=== PATIENT | female | born 1940 | race Two or more races ===

== ENCOUNTER 2017-07-21 08:50 | Inpatient (IN) | payer OTHER ==
[~2017-07-21] VITALS: Ht 162.6 cm; Wt 56.7 kg
[~2017-07-21 08:50] MED LIST: ACID CONTROL150 MG PO; AMOX1TAB12 PO; ANTIVERT25 M1 PO; CIPRO500 MG PO; INTESTINEX1 CA1 PO; LEVAQUIN750 MG PO; LIPITOR20 MG; METRONIDAZOLE500 MG PO; OFLOXACIN TP; PLAVIX75 MG; TESSALON PERLE100 MG PO; TUSSI PRES-B L120 M1 PO
== END 2017-07-31 15:47 | disposition home or self-care (01) | DRG 190 ==
LOC: ER 08:50 → MEDI 17:01
PROC: 4A033R1 Measurement of Arterial Saturation, Peripheral, Percutaneous Approach (ICD-10-PCS; principal; 2017-07-21)
PROC: 3E0F7GC Introduction of Other Therapeutic Substance into Respiratory Tract, Via Natural or Artificial Opening (ICD-10-PCS; 2017-07-21)
PROC: BW24Y0Z Computerized Tomography (CT Scan) of Chest and Abdomen using Other Contrast, Unenhanced and Enhanced (ICD-10-PCS; 2017-07-24)
PROC: B246ZZZ Ultrasonography of Right and Left Heart (ICD-10-PCS; 2017-07-25)
PROC: 4A12X4Z Monitoring of Cardiac Electrical Activity, External Approach (ICD-10-PCS; 2017-07-26)
PROC: 02HV33Z Insertion of Infusion Device into Superior Vena Cava, Percutaneous Approach (ICD-10-PCS; 2017-07-27)
PROC: 4A12XM4 Monitoring of Cardiac Stress, External Approach (ICD-10-PCS; 2017-07-28)
PROC: 3E033HZ Introduction of Radioactive Substance into Peripheral Vein, Percutaneous Approach (ICD-10-PCS; 2017-07-28)
PROC: BB24Y0Z Computerized Tomography (CT Scan) of Bilateral Lungs using Other Contrast, Unenhanced and Enhanced (ICD-10-PCS; 2017-07-29)
DX: J44.1 Chronic obstructive pulmonary disease with (acute) exacerbation (principal); J18.9 Pneumonia, unspecified organism; I50.33 Acute on chronic diastolic (congestive) heart failure; B37.0 Candidal stomatitis; I20.0 Unstable angina; J45.32 Mild persistent asthma with status asthmaticus; J44.0 Chronic obstructive pulmonary disease with (acute) lower respiratory infection; R09.02 Hypoxemia; J20.9 Acute bronchitis, unspecified; I11.0 Hypertensive heart disease with heart failure; R42 Dizziness and giddiness

== ENCOUNTER → 2017-11-12 | Outpatient (CLI) | payer OTHER | END | disposition home or self-care (01) | LOC: TOM 07:32 | DX: R10.9 Unspecified abdominal pain (principal) ==

== ENCOUNTER 2018-11-11 07:32 | Emergency (ER) | payer OTHER ==
[~2018-11-11] VITALS: Ht 162.6 cm; Wt 60.8 kg
[2018-11-11] MEDS ORDERED: ASPIR 8181 MG PO (07:43)
== END 2018-11-11 11:15 | disposition home or self-care (01) ==
LOC: ER 07:32
DX: N39.0 Urinary tract infection, site not specified (principal)

== ENCOUNTER 2018-11-15 00:12 | Inpatient (IN) | payer OTHER ==
[~2018-11-15] VITALS: Ht 162.6 cm; Wt 60.8 kg
[~2018-11-15 00:12] MED LIST changes: +ASPIR 8181 MG PO
--- NOTE | 2018-11-15 00:23 | NUR ---
SE RECIBE PTE ALERTA Y ORIENTADA POR KRISTIE EN AMBULANCIA. FAMILIAR REFIERE QUE LA PTE DAVID PRESENTADO 10 EPISODIOS DE VOMITOS Y 15 DE DIARREAS DESDE HOY EN LA TARDE. PTE ES PRESENTADA A DR. PICKENS POR PERSONAL PARAMEDICO.
--- NOTE | 2018-11-15 01:39 | NUR ---
SE RECIBE A ЮЛИЯ DE EMERGENCIAS AREA DE OBSERVACION,PTE FEMENINA DE 78 YRS,PTE ALERTA X 3, EN BUSHRA CON BARANDAS ELEVADAS POR BERNAL SEGURIDAD,DR PICKENS EVALUA Y ORDENA IVF'S CON MEDICAMENTOS Y LABORATORIOS.
--- NOTE | 2018-11-15 06:59 | NUR ---
PACIENTE ALERTA Y ORIENTADA X3, CON BUEN PATRON RESPIRATORIO Y SIGNOS VITALES ESTABLES, NO REFIERE DOLOR AL MOMENTO, CANALIZADA EN BRAZO DERECHO BAJANDO UN 0.9NSS AT 125ML/HR. PENDIENTE A CONSULTA CON INTERNISTA. SE CJ TRANQUILA EN CAMA, CON BARANDAS ELEVADAS, FRENOS COLOCADOS Y SIGNSO VITALES ESTABLES.
[2018-11-19] MEDS ORDERED: Intestinex CAP PO (07:18)
[2018-11-19] MEDS ORDERED: CIPRO500 MG PO (07:19)
== END 2018-11-19 14:39 | disposition home or self-care (01) | DRG 683 ==
LOC: ER 00:12 → MEDJ 06:58
PROVIDERS: ADMIT Student in an Organized Health Care Education/Training Program
PROC: 8E0ZXY6 Isolation (ICD-10-PCS; 2018-11-15)
PROC: BW21Y0Z Computerized Tomography (CT Scan) of Abdomen and Pelvis using Other Contrast, Unenhanced and Enhanced (ICD-10-PCS; principal; 2018-11-17)
DX: N17.8 Other acute kidney failure (principal); N39.0 Urinary tract infection, site not specified; K57.32 Diverticulitis of large intestine without perforation or abscess without bleeding; E86.0 Dehydration; E87.8 Other disorders of electrolyte and fluid balance, not elsewhere classified; N20.0 Calculus of kidney; I10 Essential (primary) hypertension

== ENCOUNTER → 2018-11-24 | Outpatient (CLI) | payer OTHER ==
[~2018-11-24] MED LIST changes: +Intestinex CAP PO
== END | disposition home or self-care (01) ==
LOC: TOM 09:00
DX: R51 Headache (principal)

== ENCOUNTER 2018-12-15 07:47 | Outpatient (CLI) | payer OTHER | END 2018-12-15 08:02 | disposition home or self-care (01) | LOC: SONOGRAMA 07:47 | DX: C50.819 Malignant neoplasm of overlapping sites of unspecified female breast (principal) ==

== ENCOUNTER → 2018-12-16 | Outpatient (CLI) | payer OTHER | END | disposition home or self-care (01) | LOC: NUCLEAR 09:00 | DX: I50.32 Chronic diastolic (congestive) heart failure (principal); I13.0 Hypertensive heart and chronic kidney disease with heart failure and stage 1 through stage 4 chronic kidney disease, or unspecified chronic kidney disease ==

== ENCOUNTER 2018-12-21 09:59 | Outpatient (CLI) | payer OTHER | END 2018-12-21 10:02 | disposition home or self-care (01) | LOC: RAD 09:59 | DX: J44.1 Chronic obstructive pulmonary disease with (acute) exacerbation (principal) ==

== ENCOUNTER 2019-06-10 11:00 | Emergency (ER) | payer OTHER ==
[~2019-06-10] VITALS: Ht 162.6 cm; Wt 59.0 kg
== END 2019-06-10 13:28 | disposition home or self-care (01) ==
LOC: ER 11:00
DX: M54.5 Low back pain (principal)

== ENCOUNTER 2019-07-26 07:16 | Outpatient (CLI) | payer OTHER | END 2019-07-26 07:29 | disposition home or self-care (01) | LOC: NUCLEAR 07:16 | DX: S32.10XA Unspecified fracture of sacrum, initial encounter for closed fracture (principal) | CPT/HCPCS: 78306; A9503 ==

== ENCOUNTER 2019-09-01 09:01 | Outpatient (CLI) | payer OTHER | END 2019-09-01 09:23 | disposition home or self-care (01) | LOC: NUCLEAR 09:01 | DX: I67.89 Other cerebrovascular disease (principal) ==

== ENCOUNTER 2019-09-12 13:48 | Outpatient (CLI) | payer OTHER | END 2019-09-12 13:57 | disposition home or self-care (01) | LOC: NUCLEAR 13:48 | DX: M81.0 Age-related osteoporosis without current pathological fracture (principal) ==

== ENCOUNTER 2019-09-14 09:57 | Emergency (ER) | payer OTHER ==
[~2019-09-14] VITALS: Ht 157.5 cm; Wt 59.0 kg
[2019-09-14] MEDS ORDERED: MECLIZINE HCL25 MG PO (14:42)
== END 2019-09-14 14:51 | disposition home or self-care (01) ==
LOC: ER 09:57
DX: R42 Dizziness and giddiness (principal)

== ENCOUNTER 2020-01-12 11:42 | Emergency (ER) | payer OTHER ==
[~2020-01-12] VITALS: Ht 160 cm; Wt 58.1 kg
[~2020-01-12 11:42] MED LIST changes: +MECLIZINE HCL25 MG PO
[2020-01-12] MEDS ORDERED: CLINDAMYCIN HC150 MG PO (15:55)
[2020-01-12] MEDS ORDERED: CELEBREX100 MG PO (15:55)
== END 2020-01-12 16:00 | disposition home or self-care (01) ==
LOC: ER 11:42
DX: L03.211 Cellulitis of face (principal); K13.79 Other lesions of oral mucosa

== ENCOUNTER → 2020-08-07 | Outpatient (CLI) | payer OTHER ==
[~2020-08-07] MED LIST changes: +CELEBREX100 MG PO; +CLINDAMYCIN HC150 MG PO
== END | disposition home or self-care (01) ==
LOC: RAD 11:55
PROVIDERS: ATTEND Pediatrics
DX: I10 Essential (primary) hypertension (principal); I15.8 Other secondary hypertension

== ENCOUNTER 2021-03-13 08:00 | Outpatient (CLI) | payer OTHER | END 2021-03-13 08:30 | disposition home or self-care (01) | LOC: PPH VACUNA 08:00 | DX: Z23 Encounter for immunization (principal) ==

== ENCOUNTER 2021-04-09 10:48 | Emergency (ER) | payer OTHER ==
[~2021-04-09] VITALS: Ht 160 cm; Wt 59.0 kg
[2021-04-09] MEDS ORDERED: ALPHAGAN P5 M2 OP (11:15)
== END 2021-04-09 16:47 | disposition home or self-care (01) ==
LOC: ER 10:48
DX: K29.70 Gastritis, unspecified, without bleeding (principal); R07.89 Other chest pain

== ENCOUNTER 2021-08-01 15:30 | Outpatient (CLI) | payer OTHER ==
[~2021-08-01 15:30] MED LIST changes: +ALPHAGAN P5 M2 OP
== END 2021-08-01 15:44 | disposition home or self-care (01) ==
LOC: LAB 15:30
PROVIDERS: ATTEND Internal Medicine
DX: E55.9 Vitamin D deficiency, unspecified (principal)

== ENCOUNTER 2021-08-02 08:13 | Outpatient (CLI) | payer OTHER | END 2021-08-02 08:20 | disposition home or self-care (01) | LOC: LAB 08:13 | PROVIDERS: ATTEND Internal Medicine | DX: R73.03 Prediabetes (principal); J44.9 Chronic obstructive pulmonary disease, unspecified; E78.2 Mixed hyperlipidemia; E55.9 Vitamin D deficiency, unspecified; N76.0 Acute vaginitis ==

== ENCOUNTER 2021-08-05 07:47 | Outpatient (CLI) | payer OTHER | END 2021-08-05 08:05 | disposition home or self-care (01) | LOC: TOM 07:47 | PROVIDERS: ATTEND Internal Medicine | DX: R10.84 Generalized abdominal pain (principal) | CPT/HCPCS: 74177; Q9965 ==

== ENCOUNTER 2021-10-18 08:00 | Outpatient (CLI) | payer OTHER | END 2021-10-18 08:30 | disposition home or self-care (01) | LOC: PPH VACUNA 08:00 | PROVIDERS: ATTEND Emergency Medicine Pediatric Emergency Medicine | DX: Z23 Encounter for immunization (principal) ==

== ENCOUNTER 2021-11-21 09:05 | Outpatient (CLI) | payer OTHER | END 2021-11-21 09:17 | disposition home or self-care (01) | LOC: LAB 09:05 | DX: N39.0 Urinary tract infection, site not specified (principal); N20.0 Calculus of kidney; D68.9 Coagulation defect, unspecified ==

== ENCOUNTER 2021-11-21 10:19 | Outpatient (CLI) | payer OTHER | END 2021-11-21 10:24 | disposition home or self-care (01) | LOC: RAD 10:19 | DX: J18.9 Pneumonia, unspecified organism (principal) ==

== ENCOUNTER 2022-02-05 08:53 | Outpatient (CLI) | payer OTHER | END 2022-02-05 09:04 | disposition home or self-care (01) | LOC: LAB 08:53 | PROVIDERS: ATTEND Internal Medicine | DX: E78.2 Mixed hyperlipidemia (principal); E55.9 Vitamin D deficiency, unspecified; E03.9 Hypothyroidism, unspecified; R31.9 Hematuria, unspecified; E11.9 Type 2 diabetes mellitus without complications; C67.9 Malignant neoplasm of bladder, unspecified ==

== ENCOUNTER 2022-02-10 08:07 | Outpatient (CLI) | payer OTHER | END 2022-02-10 13:05 | disposition home or self-care (01) | LOC: TOM 08:07 | PROVIDERS: ATTEND Internal Medicine | DX: E03.9 Hypothyroidism, unspecified (principal); I67.2 Cerebral atherosclerosis; R42 Dizziness and giddiness; I65.23 Occlusion and stenosis of bilateral carotid arteries | CPT/HCPCS: 70496; 70498; 76536; Q9965 ==

== ENCOUNTER 2022-04-04 09:41 | Outpatient (CLI) | payer OTHER | END 2022-04-04 09:49 | disposition home or self-care (01) | LOC: RAD 09:41 | DX: J18.9 Pneumonia, unspecified organism (principal) ==

== ENCOUNTER 2022-07-16 09:58 | Outpatient (CLI) | payer OTHER | END 2022-07-16 10:08 | disposition home or self-care (01) | LOC: TOM 09:58 | PROVIDERS: ATTEND Internal Medicine | DX: N13.2 Hydronephrosis with renal and ureteral calculous obstruction (principal) ==

== ENCOUNTER 2022-11-04 07:59 | Outpatient (CLI) | payer OTHER | END 2022-11-04 08:07 | disposition home or self-care (01) | LOC: TOM 07:59 | PROVIDERS: ATTEND Otolaryngology Plastic Surgery within the Head & Neck | DX: R05.3 Chronic cough (principal); Z87.891 Personal history of nicotine dependence | CPT/HCPCS: 71260; Q9965 ==

== ENCOUNTER 2022-11-15 16:16 | Emergency (ER) | payer OTHER ==
[~2022-11-15] VITALS: Ht 157.5 cm; Wt 51.7 kg
[2022-11-15] MEDS ORDERED: DORZOLAMIDE HCL10 ML OP (16:38)
== END 2022-11-15 20:02 | disposition home or self-care (01) ==
LOC: ER 16:16
DX: S01.82XA Laceration with foreign body of other part of head, initial encounter (principal); W19.XXXA Unspecified fall, initial encounter; Y93.9 Activity, unspecified; Y92.9 Unspecified place or not applicable

== ENCOUNTER 2023-01-14 11:39 | Emergency (ER) | payer OTHER ==
[~2023-01-14] VITALS: Ht 157.5 cm; Wt 51.7 kg
[~2023-01-14 11:39] MED LIST changes: +DORZOLAMIDE HCL10 ML OP
[2023-01-14] MEDS ORDERED: DICY20TA PO (18:12)
[2023-01-14] MEDS ORDERED: CIPRO500 MG PO (18:12)
== END 2023-01-14 18:19 | disposition home or self-care (01) ==
LOC: ER 11:39
DX: R10.32 Left lower quadrant pain (principal); C67.9 Malignant neoplasm of bladder, unspecified

== ENCOUNTER 2023-03-31 08:36 | Outpatient (CLI) | payer OTHER ==
[~2023-03-31 08:36] MED LIST changes: +DICY20TA PO
== END 2023-03-31 08:52 | disposition home or self-care (01) ==
LOC: TOM 08:36
PROVIDERS: ATTEND Internal Medicine
DX: I20.9 Angina pectoris, unspecified (principal); R42 Dizziness and giddiness; R92.1 Mammographic calcification found on diagnostic imaging of breast; M50.33 Other cervical disc degeneration, cervicothoracic region; Z12.31 Encounter for screening mammogram for malignant neoplasm of breast

== ENCOUNTER 2023-04-21 08:28 | Outpatient (CLI) | payer OTHER | END 2023-04-21 08:36 | disposition home or self-care (01) | LOC: NUCLEAR 08:28 | PROVIDERS: ATTEND Internal Medicine | DX: I65.29 Occlusion and stenosis of unspecified carotid artery (principal); I65.23 Occlusion and stenosis of bilateral carotid arteries ==

== ENCOUNTER → 2023-06-01 08:35 | Outpatient (CLI) | payer OTHER ==
[2023-06-01 10:19] LABS: CREATININE SERUM 1.04 mg/dL (0.55-1.02)
== END | disposition home or self-care (01) ==
LOC: LAB 08:35
PROVIDERS: ATTEND Internal Medicine Gastroenterology
DX: R10.10 Upper abdominal pain, unspecified (principal)

== ENCOUNTER 2023-06-03 09:08 | Outpatient (CLI) | payer OTHER | END 2023-06-03 09:19 | disposition home or self-care (01) | LOC: TOM 09:08 | PROVIDERS: ATTEND Internal Medicine Gastroenterology | DX: R10.10 Upper abdominal pain, unspecified (principal); R10.30 Lower abdominal pain, unspecified; K57.30 Diverticulosis of large intestine without perforation or abscess without bleeding | CPT/HCPCS: 74177; Q9965 ==

== ENCOUNTER → 2023-07-15 | Emergency (ER) | payer OTHER ==
[~2023-07-15] VITALS: Ht 154.9 cm; Wt 51.7 kg
[~2023-07-15] MED LIST changes: +CLEOCIN HCL300 MG PO; +DICLOFENAC SODI75 MG PO
== END | disposition home or self-care (01) ==
LOC: ER 13:13
DX: K12.1 Other forms of stomatitis (principal)
CPT/HCPCS: 96372; 99284; J1885; J3490

== ENCOUNTER 2024-02-02 08:19 | Outpatient (CLI) | payer OTHER | END 2024-02-02 08:23 | disposition home or self-care (01) | LOC: SONOGRAMA 08:19 | DX: N13.4 Hydroureter (principal) ==

== ENCOUNTER 2024-03-28 13:46 | Outpatient (CLI) | payer OTHER | END 2024-03-28 13:58 | disposition home or self-care (01) | LOC: RAD 13:46 | DX: J44.1 Chronic obstructive pulmonary disease with (acute) exacerbation (principal); C67.9 Malignant neoplasm of bladder, unspecified ==

== ENCOUNTER 2024-04-15 07:33 | Outpatient (CLI) | payer OTHER | END 2024-04-15 07:34 | disposition home or self-care (01) | LOC: NUCLEAR 07:33 | PROVIDERS: ATTEND Internal Medicine | DX: I11.9 Hypertensive heart disease without heart failure (principal) | CPT/HCPCS: 78452; 93017; A9500 ==

== ENCOUNTER → 2024-06-21 | Emergency (ER) | payer OTHER ==
[~2024-06-21] VITALS: Ht 157.5 cm; Wt 53.5 kg
[~2024-06-21] MED LIST changes: +FAMOtidine 20 MG TABLET PO STA
[2024-06-21 12:52] VITALS: BP 177/77; O2SAT 95
[2024-06-21 17:15] LABS: HEMATOCRIT 43.3 % (36.0-45.00); HEMOGLOBIN 14.3 g/dL (12.0-15.00); MEAN CELL VOLUME 98.4 fL (80.00-100.00); MEAN CORPUSCULAR HEMOGLOBIN 32.4 pg (27.00-32.0); PLATELET COUNT 155 K/uL (150-450); RED CELL DISTRIBUTION WIDTH 14.4 % (11.5-14.5)
[2024-06-21 17:30] LABS: INR 1.01; PARTIAL THROMBOPLASTIN TIME 26.2 SECONDS (22.0-34.0)
[2024-06-21 17:37] LABS: ALBUMIN 3.4 gm/dL (3.4-5.0); BILIRUBIN TOTAL 0.61 mg/dL (0.3-1.2); CALCIUM 9.4 mg/dL (8.5-10.1); CREATININE SERUM 1.22 mg/dL (0.55-1.02); GFR 42.2; GLOBULINA 3.2 G/DL (2.4-3.5); POTASSIUM 4.52 mEq/L (3.5-5.1); TOTAL PROTEIN 6.6 gm/dL (6.4-8.2)
== END | disposition home or self-care (01) ==
LOC: ER 12:27
PROVIDERS: General Practice
DX: R07.9 Chest pain, unspecified (principal); J44.9 Chronic obstructive pulmonary disease, unspecified; Z87.891 Personal history of nicotine dependence; I10 Essential (primary) hypertension

== ENCOUNTER 2024-06-29 08:30 | Outpatient (CLI) | payer OTHER ==
[~2024-06-29 08:30] MED LIST changes: -FAMOtidine 20 MG TABLET PO STA
== END 2024-06-29 08:56 | disposition home or self-care (01) ==
LOC: SONOGRAMA 08:30
DX: R10.9 Unspecified abdominal pain (principal)

== ENCOUNTER 2024-08-19 09:22 | Outpatient (CLI) | payer OTHER | END 2024-08-19 09:23 | disposition home or self-care (01) | LOC: NUCLEAR 09:22 | PROVIDERS: ATTEND Internal Medicine | DX: I65.22 Occlusion and stenosis of left carotid artery (principal) ==

== ENCOUNTER 2024-11-08 12:17 | Outpatient (CLI) | payer OTHER | END 2024-11-08 12:22 | disposition home or self-care (01) | LOC: MAMO-SONO 12:17 | DX: D24.1 Benign neoplasm of right breast (principal); R92.1 Mammographic calcification found on diagnostic imaging of breast; J18.9 Pneumonia, unspecified organism; Z12.31 Encounter for screening mammogram for malignant neoplasm of breast ==

== ENCOUNTER 2025-03-06 09:46 | Outpatient (CLI) | payer OTHER | END 2025-03-06 09:48 | disposition home or self-care (01) | LOC: TOM 09:46 | PROVIDERS: ATTEND Internal Medicine | DX: R42 Dizziness and giddiness (principal); R51.9 Headache, unspecified ==

== ENCOUNTER 2025-04-04 14:23 | Outpatient (CLI) | payer OTHER | END 2025-04-05 14:26 | disposition home or self-care (01) | LOC: RAD 14:23 | DX: J44.1 Chronic obstructive pulmonary disease with (acute) exacerbation (principal); C67.9 Malignant neoplasm of bladder, unspecified ==

== ENCOUNTER 2025-06-05 10:05 | Outpatient (CLI) | payer OTHER | END 2025-06-05 10:08 | disposition home or self-care (01) | LOC: TOM 10:05 | PROVIDERS: ATTEND Internal Medicine Cardiovascular Disease | DX: J43.9 Emphysema, unspecified (principal) ==